=== PATIENT | female | born 1990 | race Caucasian/White ===

== ENCOUNTER 2022-02-10 13:53 | Emergency (ER) | payer OTHER ==
[2022-02-10 15:20] LABS: BASOPHIL 0.8 % (0-2); EOSINOPHIL 1.2 % (0-5); HCT 38.5 % (37.0-47.0); HGB 12.6 g/dl (12.5-16.0); MCH 29.9 pg (25.0-31.0); MCHC 32.7 g/dL (32.0-36.0); MCV 91.4 fL (78.0-100.0); MONOCYTE 6.5 % (0-12); MPV 9.9 fL (6.0-9.5); NRBC 0; PLT 347 K/uL (150-400); RBC 4.21 M/uL (4.20-5.40); RDW 11.8 % (11.5-14.0); WBC 6.6 K/uL (4.0-10.5)
[2022-02-10 15:21] LABS: BILIRUBIN NEGATIVE (NEGATIVE); BLOOD NEGATIVE Ery/uL (NEGATIVE); CLARITY CLEAR (CLEAR); COLOR YELLOW (YELLOW); GLUCOSE (U) NORMAL (NORMAL); LEUKOCYTES NEGATIVE Leu/uL (NEGATIVE); NITRITE NEGATIVE (NEGATIVE); PROTEIN NEGATIVE (NEGATIVE); SPECIFIC GRAVITY <=1.005 (1.001-1.030); UROBILINOGEN 0.2 mg/dL (0.2-1.0); pH 5.5 (5.0-9.0)
[2022-02-10 15:40] LABS: BUN 8 mg/dL (7-18); BUN/CREAT RATIO (CALC) 10.7 RATIO; CHLORIDE 105 mmol/L (98-107); CO2 (BICARBONATE) 27 mmol/L (21-32); CREATININE 0.75 mg/dL (0.51-0.95); GLUCOSE 94 mg/dL (74-106); POTASSIUM 3.5 mmol/L (3.5-5.1)
[2022-02-10 16:14] LABS: CORONAVIRUS 2019 SARS-COV-2 NEGATIVE (NEGATIVE); INFLUENZA A NAA NEGATIVE (NEGATIVE)
== END 2022-02-10 18:45 | disposition home or self-care (01) ==
LOC: FER 13:53
PROVIDERS: Nurse Practitioner Family
DX: R07.89 Other chest pain (principal); Z28.310 Unvaccinated for COVID-19; Z20.822 Contact with and (suspected) exposure to COVID-19; Z87.891 Personal history of nicotine dependence; Z91.040 Latex allergy status
CPT/HCPCS: 36415; 71045; 80048; 81003; 84484; 85025; 85379; 93005; J1885; J7030; U0002